=== PATIENT | female | born 1995 | race Caucasian/White ===

== ENCOUNTER → 2020-07-29 00:31 | Observation (INO) ==
[2020-07-28 23:59] VITALS: BP 133/78
[2020-07-29 01:06] LABS: Gardnerella DNA Not Detected (Not Detect); Trichomonas DNA Not Detected (Not Detect)
[2020-07-29 01:07] LABS: Candida DNA Not Detected (Not Detect)
== END | disposition home or self-care (01) ==
LOC: 1NENULAB
PROVIDERS: ADMIT Registered Nurse; ATTEND Registered Nurse

== ENCOUNTER 2020-08-05 06:19 | Inpatient (IN) ==
[2020-08-05] MEDS ORDERED: Metoclopramide 10 MG/2 ML VIAL IVP PRN (06:22)
[2020-08-05] MEDS ORDERED: Ondansetron 4 MG/2 ML VIAL IVP PRN (06:22)
[2020-08-05] MEDS ORDERED: Azithromycin 500 MG in 0.9 % Sodium Chloride 250 ML IVPB PRN (06:22)
[2020-08-05] MEDS ORDERED: Naloxone 0.4 MG/ML INJ IVP PRN (06:22)
[2020-08-05] MEDS ORDERED: Famotidine 20 MG/2 ML VIAL IVP PRN (06:22)
[2020-08-05] MEDS ORDERED: Lidocaine 1% 20 ML MDV INFILT PRN (06:22)
[2020-08-05] MEDS ORDERED: EPHEDrine 50 MG/ML VIAL IVP PRN ×2 (06:32→08:40)
[2020-08-05] MEDS ORDERED: Epidural Premix (fent/bupiv) 110 ML EP SCH (06:45)
[2020-08-05 07:02] LABS: Basophils % 0.1 %; Eosinophils % 0.3 %; Hematocrit 35.3 % (35.3-44.9); Hemoglobin 11.1 g/dL (11.5-15.4); Immature Granulocytes % 0.4 % (0-4); Immature Platelets 15.4 % (1.1-6.1); Lymphocytes # 1.6 K/mcL (0.6-4.6); Lymphocytes % 12.8 %; Mean Corpuscular HGB Conc 31.4 g/dL (31.6-35.5); Mean Corpuscular Hemoglobin 26.1 pg (28.0-33.3); Mean Corpuscular Volume 82.9 fL (83.0-100.0); Mean Platelet Volume 13.8 fL (9.4-12.4); Monocytes # 0.7 K/mcL (0.0-1.3); Neutrophils # 9.7 K/mcL (1.6-8.9); Platelet Count 191 K/mcL (140-400); Red Blood Count 4.26 M/mcL (3.82-4.97); Red Cell Distribution Width 13.9 % (11.5-14.5); Segmented Neutrophils % 80.4 %; White Blood Count 12.1 K/mcL (4.3-11.1)
[2020-08-05] MEDS ORDERED: miSOPROStoL 25 MCG TABLET PO PRN (07:03)
[2020-08-05] MEDS ORDERED: *HR* FentaNYL (PF) 100 MCG/2 ML VIAL EP ONE (08:40)
[2020-08-05] MEDS ORDERED: Ropivacaine/PF 0.2% 20 ML VIAL EP ONE (08:40)
[2020-08-05 09:13] LABS: Amphetamine Screen,Urine Negative ng/mL (Cutoff=1000); Barbiturate Screen,Urine Negative ng/mL (Cutoff=200); Benzodiazepines Screen,Urine Negative ng/mL (Cutoff=200); Cannabinoid Screen,Urine Negative ng/mL (Cutoff = 50); Cocaine Screen,Urine Negative ng/mL (Cutoff= 300); Opiate Screen,Urine Negative ng/mL (Cutoff=300); Phencyclidine Screen,Urine Negative ng/mL (Cutoff=25)
[2020-08-05] MEDS ORDERED: *HR* FentaNYL (PF) 250 MCG/5 ML VIAL ONE (10:57)
[2020-08-05] MEDS ORDERED: Ropivacaine/PF 0.2% 20 ML VIAL ONE (10:57)
[2020-08-05] MEDS ORDERED: Oxytocin 20 units/ LR 1000 mL 20 UNIT/1,000 ML BAG IVC SCH (13:15)
[2020-08-05] MEDS: Ringers Solution, Lactated 1,000 ML IVC SCH ×2 (13:24→22:54)
[2020-08-05] MEDS: *HR* Nalbuphine 10 MG/ML AMPUL IV PRN ×2 (18:54→22:54)
[2020-08-06] MEDS ORDERED: CeFAZolin Syr 3,000MG/30 ML 3,000 MG/30 ML SYRINGE IVPB ONE (04:11)
[2020-08-06] MEDS ORDERED: *HR* Morphine Sulfate/PF 10 MG/10 ML AMPUL ONE (04:25)
[2020-08-06] MEDS ORDERED: *HR* FentaNYL (PF) 100 MCG/2 ML VIAL ONE ×2 (04:26→05:07)
[2020-08-06] MEDS ORDERED: Chloroprocaine/PF 20 ML VIAL INFILT ONE ×2 (04:26→04:54)
[2020-08-06] MEDS ORDERED: Oxytocin 20 units/ LR 1000 mL 20 UNIT/1,000 ML BAG IVC ONE (04:32)
[2020-08-06] MEDS ORDERED: Ondansetron 4 MG/2 ML VIAL IVP PRN ×2 (05:05→08:07)
[2020-08-06] MEDS ORDERED: *HR* HYDROmorphone PF 0.5 MG/0.5 ML SYRINGE IVP PRN (05:05)
[2020-08-06] MEDS ORDERED: Ketorolac 30 MG/ML VIAL ONE (05:14)
[2020-08-06] MEDS ORDERED: Rho Immune Globulin 1,500 UNIT SYRINGE IM ONE (08:07)
[2020-08-06] MEDS ORDERED: Ringers Solution, Lactated 1,000 ML IVC SCH (08:07)
[2020-08-06] MEDS ORDERED: Oxytocin 20 units/ LR 1000 mL 20 UNIT/1,000 ML BAG IVC SCH ×2 (08:07)
[2020-08-06] MEDS ORDERED: Metoclopramide 10 MG/2 ML VIAL IVP PRN (08:07)
[2020-08-06] MEDS ORDERED: Naloxone 0.4 MG/ML INJ IVP PRN (08:07)
[2020-08-06] MEDS: Prenatal Vit/FA 1 EACH TABLET PO SCH (12:00)
[2020-08-06] MEDS: metroNIDAZOLE 500 MG TABLET PO SCH ×3 (12:00→19:47)
[2020-08-06] MEDS: Ibuprofen 600 MG TABLET PO SCH ×2 (12:00→19:47)
[2020-08-06] MEDS: cephALEXin 500 MG CAPSULE PO SCH ×3 (12:01→19:47)
[2020-08-06] MEDS: Loratadine 10 MG TABLET PO SCH (12:01)
[2020-08-06] MEDS: *HR* HYDROcodone/Acet 5/325 mg TABLET PO PRN ×3 (15:12→23:46)
[2020-08-07] MEDS: Ibuprofen 600 MG TABLET PO SCH ×4 (04:14→22:08)
[2020-08-07] MEDS: *HR* HYDROcodone/Acet 5/325 mg TABLET PO PRN ×4 (04:15→22:08)
[2020-08-07 05:01] LABS: Basophils % 0.1 %; Eosinophils % 0.1 %; Immature Granulocytes % 0.6 % (0-4); Red Cell Distribution Width 14.2 % (11.5-14.5)
[2020-08-07 05:03] LABS: Hematocrit 28.9 % (35.3-44.9); Hemoglobin 8.9 g/dL (11.5-15.4); Immature Platelets 15.7 % (1.1-6.1); Lymphocytes # 1.7 K/mcL (0.6-4.6); Lymphocytes % 8.4 %; Mean Corpuscular HGB Conc 30.8 g/dL (31.6-35.5); Mean Corpuscular Hemoglobin 25.6 pg (28.0-33.3); Mean Corpuscular Volume 83.3 fL (83.0-100.0); Mean Platelet Volume 13.5 fL (9.4-12.4); Monocytes # 1.1 K/mcL (0.0-1.3); Monocytes % 5.3 %; Neutrophils # 17.3 K/mcL (1.6-8.9); Platelet Count 179 K/mcL (140-400); Red Blood Count 3.47 M/mcL (3.82-4.97); Segmented Neutrophils % 85.5 %; White Blood Count 20.2 K/mcL (4.3-11.1)
[2020-08-07 05:29] LABS: Platelet Estimate Normal (Normal)
[2020-08-07] MEDS: cephALEXin 500 MG CAPSULE PO SCH ×3 (10:01→20:07)
[2020-08-07] MEDS: metroNIDAZOLE 500 MG TABLET PO SCH ×3 (10:02→20:06)
[2020-08-07] MEDS: Loratadine 10 MG TABLET PO SCH (10:02)
[2020-08-07] MEDS: Prenatal Vit/FA 1 EACH TABLET PO SCH (10:03)
[2020-08-07] MEDS: Simethicone 80 MG TAB.CHEW PO PRN ×2 (10:10→20:10)
[2020-08-07 22:29] VITALS: BP 128/87
[2020-08-08] MEDS: *HR* HYDROcodone/Acet 5/325 mg TABLET PO PRN ×2 (04:12→08:07)
[2020-08-08] MEDS: Ibuprofen 600 MG TABLET PO SCH ×2 (04:13→09:45)
[2020-08-08] MEDS: Loratadine 10 MG TABLET PO SCH (07:25)
[2020-08-08] MEDS: Prenatal Vit/FA 1 EACH TABLET PO SCH (07:25)
[2020-08-08] MEDS: Simethicone 80 MG TAB.CHEW PO PRN (08:06)
[2020-08-08] MEDS ORDERED: Lanolin 7 G OINT...G. TP PRN (10:32)
== END 2020-08-08 12:27 | disposition home or self-care (01) | DRG 787 ==
LOC: 1NENULAB 06:19 → 1NENUOBS 08-06 08:01
PROVIDERS: ADMIT Obstetrics & Gynecology; ATTEND Obstetrics & Gynecology